=== PATIENT | female | born 1985 | race Caucasian/White ===

== ENCOUNTER 2020-10-10 11:07 | Emergency (ER) | payer SELFPAY ==
--- NOTE | 2020-10-10 11:49 | RAD REPORT ---
EXAM DESCRIPTION: RAD - Ankle Right 3 View - 10/10/2020 11:41 am CLINICAL HISTORY: Right ankle pain FINDINGS: No fracture or dislocation is seen. Mild soft tissue swelling. Small calcaneal spur
--- NOTE | 2020-10-10 12:28 | RAD REPORT ---
EXAM DESCRIPTION: RAD - Foot Right 3 View - 10/10/2020 12:19 pm CLINICAL HISTORY: Right foot pain FINDINGS: No fracture or dislocation is seen. Tiny plantar calcaneal spur
--- NOTE | 2020-10-10 12:34 | EDPHYS ---
Physician Documentation [facility] Name: Marina Bran Age: 35 yrs Sex: Female : 1985 Arrival Date: 10/10/2020 Time: 11:11 Bed 18 Private MD: NIR Physician Justyn Navas HPI: 10/10 12:06 This 35 yrs old Female presents to ER via Wheelchair with complaints of Ankle pm1 Injury. 12:06 The patient presents with pain. The complaints affect the right ankle. Onset: The pm1 symptoms/episode began/occurred Turned her ankle while walking to fast about 3 weeks ago and then turned it again 2-3 days ago. Patient is also complaining or right great toe pain which she stubbed when she turned her ankle 2-3 days ago. Context: The problem was sustained outdoors, The mechanism of injury involved inversion of the affected ankle. The patient can fully bear weight on the affected extremity. the patient is able to ambulate. Associated signs and symptoms: Pertinent positives: swelling, Pertinent negatives: calf tenderness, numbness, tingling. Modifying factors: The symptoms are alleviated by elevation of extremity, the symptoms are aggravated by weight bearing. Severity of symptoms: in the emergency department the symptoms are unchanged. It is unknown whether or not the patient has recently seen a physician. Historical: - Allergies: 11:14 No Known Allergies; sv - PMHx: 11:14 None; sv - PSHx: 11:14 None; sv - Immunization history:: Flu vaccine is not up to date. - Social history:: Smoking status: Patient reports the use of cigarette tobacco products, smokes one pack cigarettes per day. ROS: 12:06 Constitutional: Negative for fever, chills, and weight loss, Cardiovascular: Negative pm1 for chest pain, palpitations, and edema, Respiratory: Negative for shortness of breath, cough, wheezing, and pleuritic chest pain, Abdomen/GI: Negative for abdominal pain, nausea, vomiting, diarrhea, and constipation, Back: Negative for injury and pain, Skin: Negative for injury, rash, and discoloration, Neuro: Negative for headache, weakness, numbness, tingling, and seizure. 12:06 MS/extremity: Positive for pain, of the right first toe and right ankle. Exam: 12:06 Constitutional: This is a well developed, well nourished patient who is awake, alert, pm1 and in no acute distress. Head/Face: Normocephalic, atraumatic. 12:06 Skin: Warm, dry with normal turgor. Normal color with no rashes, no lesions, and no evidence of cellulitis. 12:06 Cardiovascular: Exam negative for acute changes, Rate: normal, Rhythm: regular, Pulses: no pulse deficits are appreciated. 12:06 Respiratory: Exam negative for acute changes, respiratory distress, shortness of breath. 12:06 Musculoskeletal/extremity: Extremities: grossly normal except: noted in the right first toe and right ankle: swelling, tenderness, There is no evidence of decreased ROM, deformity. Vital Signs: 11:14 BP 122 / 97; Pulse 80; Resp 16; Temp 97.2(TE); Pulse Ox 100% on R/A; Weight 55.34 kg; sv Height 5 ft. 8 in. (172.72 cm); Pain 5/10; 12:45 BP 124 / 88; Pulse 76; Resp 16; Pulse Ox 99% on R/A; Pain 8/10; hb 11:14 Body Mass Index 18.55 (55.34 kg, 172.72 cm) sv MDM: 11:42 Patient medically screened. [facility] 12:33 Data reviewed: vital signs. Data interpreted: Pulse oximetry: on room air is 100 %. pm1 Interpretation: normal. Counseling: I had a detailed discussion with the patient and/or guardian regarding: the historical points, exam findings, and any diagnostic results supporting the discharge/admit diagnosis, radiology results, the need for outpatient follow up, to return to the emergency department if symptoms worsen or persist or if there are any questions or concerns that arise at home. 12:40 ED course: TELEPHONE INFORMATION CLERK aware reviewed. pm1 10/10 11:17 Order name: Ankle Right 3 View XRAY; Complete Time: 11:50 sv 10/10 11:55 Order name: Foot Right 3 View XRAY; Complete Time: 12:32 pm1 10/10 12:10 Order name: Crutches; Complete Time: 12:59 pm1 10/10 12:34 Order name: Aircast Ankle Splint; Complete Time: 12:59 pm1 Administered Medications: 12:59 Drug: [place] (7.5 mg-325 mg) 1 tabs Route: PO; hb 12:59 Follow up: Response: Medication administered at discharge. Disposition: 10/11 06:16 Co-signature as Attending Physician, Justyn Navas MD I agree with the assessment and [facility] plan of care. Disposition: 10/10/20 12:34 Discharged to Home. Impression: Sprain of unspecified ligament of right ankle, Unspecified sprain of right great toe. - Condition is Stable. - Discharge Instructions: Ankle Sprain, Crutch Use, Foot Sprain. - Prescriptions for Diclofenac Sodium 75 mg Oral Tablet Sustained Release - take 1 tablet by ORAL route 2 times per day; 30 tablet. Tramadol 50 mg Oral Tablet - take 1 tablet by ORAL route every 8 hours as needed; 12 tablet. - Medication Reconciliation Form, Thank You Letter, Antibiotic Education, Prescription Opioid Use form. - Follow up: Emergency Department; When: As needed; Reason: Worsening of condition. Follow up: Private Physician; When: 2 - 3 days; Reason: Recheck today's complaints, Continuance of care, Re-evaluation by your physician. - Problem is new. - Symptoms have improved. Signatures: Dispatcher [employer] Peggy Holley, RN RN Justyn Guerra MD MD cha Marinas, Patrick, MILLING SUPERVISOR MILLING SUPERVISOR pm1 Daisha Vu RN RN Corrections: (The following items were deleted from the chart) 10/10 13:06 12:34 10/10/2020 12:34 Discharged to Home. Impression: Sprain of unspecified ligament hb of right ankle; Unspecified sprain of right great toe. Condition is Stable. Forms are Medication Reconciliation Form, Thank You Letter, Antibiotic Education, Prescription Opioid Use. Follow up: Emergency Department; When: As needed; Reason: Worsening of condition. Follow up: Private Physician; When: 2 - 3 days; Reason: Recheck today's complaints, Continuance of care, Re-evaluation by your physician. Problem is new. Symptoms have improved. pm1
--- NOTE | 2020-10-10 12:34 | ER ---
Nurse's Notes [facility] Name: Marina Bran Age: 35 yrs Sex: Female : 1985 Arrival Date: 10/10/2020 Time: 11:11 Bed 18 Private MD: Diagnosis: Sprain of unspecified ligament of right ankle;Unspecified sprain of right great toe Presentation: 10/10 11:13 Chief complaint: Patient states: right ankle pain/swelling after twisting it a couple sv of weeks ago. Coronavirus screen: Client denies travel out of the [place] in the last 14 days. At this time, the client does not indicate any symptoms associated with coronavirus-19. Ebola Screen: No symptoms or risks identified at this time. Risk Assessment: Do you want to hurt yourself or someone else? Patient reports no desire to harm self or others. Onset of symptoms was September 2020. 11:13 Method Of Arrival: Wheelchair sv 11:13 Acuity: LILIA 4 sv 11:14 Initial Sepsis Screen: Does the patient meet any 2 criteria? No. Patient's initial sv sepsis screen is negative. Does the patient have a suspected source of infection? No. Patient's initial sepsis screen is negative. Historical: - Allergies: 11:14 No Known Allergies; sv - PMHx: 11:14 None; sv - PSHx: 11:14 None; sv - Immunization history:: Flu vaccine is not up to date. - Social history:: Smoking status: Patient reports the use of cigarette tobacco products, smokes one pack cigarettes per day. Screenin:00 Abuse screen: Denies threats or abuse. Denies injuries from another. Nutritional hb screening: No deficits noted. Tuberculosis screening: No symptoms or risk factors identified. Fall Risk None identified. Assessment: 11:17 Reassessment: Received VO from Dr Navas for right ankle xray. sv 11:35 General: Appears in no apparent distress. Behavior is calm, cooperative. Pain: Pain hb currently is 8 out of 10 on a pain scale. Neuro: Level of Consciousness is awake, alert, obeys commands, Oriented to person, place, time, situation. Cardiovascular: Capillary refill < 3 seconds Patient's skin is warm and dry. Respiratory: Respiratory effort is even, unlabored, Respiratory pattern is regular, symmetrical. GI: No signs and/or symptoms were reported involving the gastrointestinal system. : No signs and/or symptoms were reported regarding the genitourinary system. EENT: No signs and/or symptoms were reported regarding the EENT system. Derm: Skin is pink, warm \T\ dry. Musculoskeletal: Reports right ankle pain. 12:45 Reassessment: Patient appears in no apparent distress at this time. Patient and/or hb family updated on plan of care and expected duration. Pain level reassessed. Patient is alert, oriented x 3, equal unlabored respirations, skin warm/dry/pink. Vital Signs: 11:14 BP 122 / 97; Pulse 80; Resp 16; Temp 97.2(TE); Pulse Ox 100% on R/A; Weight 55.34 kg; sv Height 5 ft. 8 in. (172.72 cm); Pain 5/10; 12:45 BP 124 / 88; Pulse 76; Resp 16; Pulse Ox 99% on R/A; Pain 8/10; hb 11:14 Body Mass Index 18.55 (55.34 kg, 172.72 cm) sv ED Course: 11:11 Patient arrived in ED. mr 11:14 Triage completed. sv 11:14 Arm band placed on. sv 11:32 Geovany Koenig, LEONOR is PHCP. pm1 11:32 Justyn Navas MD is Attending Physician. pm1 11:42 Ankle Right 3 View XRAY In Process Unspecified. EDMS 11:45 Patient has correct armband on for positive identification. Bed in low position. Call hb light in reach. 12:00 Daisha Vu, RN is Primary Nurse. hb 12:19 Foot Right 3 View XRAY In Process Unspecified. EDMS 13:06 No provider procedures requiring assistance completed. Patient did not have IV access hb during this emergency room visit. Administered Medications: 12:59 Drug: [place] (7.5 mg-325 mg) 1 tabs Route: PO; hb 12:59 Follow up: Response: Medication administered at discharge. hb Outcome: 12:34 Discharge ordered by . pm1 13:06 Discharged to home ambulatory, with crutches. hb 13:06 Condition: stable 13:06 Discharge instructions given to patient, Instructed on discharge instructions, follow up and referral plans. medication usage, crutch walking, Demonstrated understanding of instructions, follow-up care, medications, crutch walking, Prescriptions given X 2. 13:06 Patient left the ED. hb Signatures: Dispatcher [employer] EDMS Peggy Ortiz, RN JURGEN Jared Tammie mr Geovany Koenig, CAR DELIVERER CAR DELIVERER pm1 Daisha Vu, JURGEN RN hb
[2020-10-10] MEDS ORDERED: HYDROCODONE/APAP 7.5/325 MG TAB ONE (13:04)
[2020-10-10 13:13] VITALS: TEMP 97.2
[2020-10-10 13:14] VITALS: BP 124/88; O2SAT 99
== END 2020-10-10 13:06 | disposition home or self-care (01) ==
LOC: ER 11:07
DX: S93.401A Sprain of unspecified ligament of right ankle, initial encounter (principal); S93.501A Unspecified sprain of right great toe, initial encounter; X58.XXXA Exposure to other specified factors, initial encounter; Y93.01 Activity, walking, marching and hiking; Y92.89 Other specified places as the place of occurrence of the external cause; F17.210 Nicotine dependence, cigarettes, uncomplicated
CPT/HCPCS: 99284